=== PATIENT | female | born 1995 ===

== ENCOUNTER 2017-10-30 21:14 | Emergency (ER) | payer SELFPAY ==
[2017-10-30 21:14] VITALS: BMI 25.6
[2017-10-30 21:44] VITALS: BP 135/79; PULSE 58; RESP 16; TEMP 98.6; O2SAT 99
== END 2017-10-30 22:30 | disposition left against medical advice (07) ==
LOC: H.ER 21:14
DX: Z02.89 Encounter for other administrative examinations (principal)